=== PATIENT | female | born 2005 | race African-American/Black ===

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

== ENCOUNTER 2023-02-28 19:35 | Emergency (ER) | payer BC, MEDICAID, SELFPAY ==
[2023-02-28 19:58] VITALS: PULSE 76; RESP 18; TEMP 36.6; O2SAT 100; BMI 35.9
[2023-02-28 20:12] LABS: Basophils # 0.1 10^3/uL (0.0-0.1); Basophils % 0.7 %; Eosinophils # 0.5 10^3/uL (0.0-0.8); Eosinophils % 4.6 %; Hematocrit 39.3 % (37.0-47.0); Hemoglobin 12.5 g/dL (11.5-15.3); Lymphocytes # 3.4 10^3/uL (1.5-6.5); Mean Corpuscular HGB Conc 31.8 g/dL (30.0-36.0); Mean Corpuscular Hemoglobin 27.8 pg (28.0-34.0); Mean Corpuscular Volume 87.5 fl (81-99); Mean Platelet Volume 10.2 fL (7.4-10.4); Monocytes # 0.6 10^3/uL (0.2-0.9); Monocytes % 6.2 %; Neutrophils # 5.72 10^3/uL (1.8-8.0); Neutrophils % 55.3 %; Nucleated Red Blood Cells % 0 %; Platelet Count 280 10^3/cmm (130-400); Red Blood Count 4.49 10^6/uL (4.1-5.3); Red Cell Distribution Width 13.2 % (12.1-15.1); White Blood Count 10.3 10^3/uL (4.5-13.0)
[2023-02-28 20:31] LABS: Alanine Aminotransferase 16 U/L (0-33); Albumin Level 4.5 g/dL (3.5-5.2); Alkaline Phosphatase 106 U/L (35-105); Anion Gap 15.7 (5-19); Aspartate Amino Transferase 11 U/L (0-32); Blood Urea Nitrogen 12 mg/dL (6-20); Calcium 8.9 mg/dL (8.5-10.5); Carbon Dioxide 23 mmol/L (22-29); Chloride 104 mmol/L (98-107); Globulin 2.5 g/dL (1.3-4.6); Glomerular Filtration Rate 155.8 mL/min (90-130); Glucose 107 mg/dL (65-115); Lipase 32 U/L (13-60); Osmolality Calculated 288 mOsm/kg (285-295); Potassium 3.7 mmol/L (3.5-5.1); Sodium 139 mmol/L (136-145); Total Bilirubin 0.2 mg/dL (0.15-1.2)
[2023-02-28 21:05] LABS: HCG, Serum Qual Negative (Negative)
== END 2023-02-28 21:00 | disposition left against medical advice (07) ==
PROVIDERS: Emergency Medicine; Emergency Provider Family Medicine; PCP Nurse Practitioner Family
DX: Z53.21 Procedure and treatment not carried out due to patient leaving prior to being seen by health care provider (principal)
CPT/HCPCS: 36415; 80053; 83690; 84703; 85025

== ENCOUNTER 2023-03-07 13:38 | Emergency (ER) | payer BC, MEDICAID, SELFPAY ==
[2023-03-07 13:44] VITALS: BP 120/71; PULSE 77; RESP 16; TEMP 36.6; O2SAT 98
--- NOTE | 2023-03-07 13:57 | CTR_ITS ---
PROCEDURE INFORMATION: Exam: CT Abdomen And Pelvis With Contrast Exam date and time: 03/07/2023 2:56 PM Age: 17 years old Clinical indication: Abdominal pain; Generalized; Additional info: Abd pain TECHNIQUE: Imaging protocol: Computed tomography of the abdomen and pelvis with contrast. Radiation optimization: All CT scans at this facility use at least one of these dose optimization techniques: automated exposure control; mA and/or kV adjustment per patient size (includes targeted exams where dose is matched to clinical indication); or iterative reconstruction. Contrast material: OMNI 350; Contrast volume: 100 ml; Contrast route: INTRAVENOUS (IV); REPORTING DATA: Count of CT and Cardiac NM exams in prior 12 months: This patient has received 0 known CTs and 0 known cardiac nuclear medicine studies in the 12 months prior to the current study. COMPARISON: CR XR KUB portable [id number] 12/07/2021 5:33 PM RADIATION DOSE METRICS: Total DLP (mGy-cm): 813.45 FINDINGS: Lungs: No infiltrate or effusion is seen within the visualized lung bases. Liver: Normal. No mass. Gallbladder and bile ducts: Suggestion of Phrygian cap superior gallbladder and gallbladder is otherwise unremarkable. No biliary ductal dilatation. Pancreas: Normal. No ductal dilation. Spleen: Normal. No splenomegaly. Adrenal glands: Normal. No mass. Kidneys and ureters: Normal. No hydronephrosis. Stomach and bowel: Zhudliau-cu-fvjpr stool content in the colon and correlate clinically for constipation. Bowel is otherwise unremarkable. No abnormal wall thickening or mucosal thickening. Appendix: No evidence of appendicitis. Intraperitoneal space: Unremarkable. No free air. No significant fluid collection. Vasculature: Unremarkable. No abdominal aortic aneurysm. Lymph nodes: Unremarkable. No enlarged lymph nodes. Urinary bladder: Partially distended urinary bladder without focal abnormality. Reproductive: Suggestion of multiple very small follicles/follicular cystic appearance of the ovaries bilaterally. This is best suggested on the coronal images. Bones/joints: Unremarkable. No acute findings. Soft tissues: Tiny umbilical hernia fat. CT/CT abdomen pelvis w con* [id number] IMPRESSION: 1. Constipation not excluded and correlate clinically. 2. Tiny umbilical hernia fat. 3. Multiple very small follicles/follicular cyst appearance of the ovaries bilaterally. 4. No acute findings.
--- NOTE | 2023-03-07 14:15 | ED_ITS ---
HPI - Abdominal Pain General: Chief Complaint: Abdominal Pain Stated Complaint: abd pain low back pian Time Seen by Provider: 03/07/23 13:49 Source: patient Mode of arrival: ambulatory Limitations: no limitations History of Present Illness: 17-year-old female states she has been having some left-sided abdominal pain over the last 2 weeks. She states that it has been worsening over the last 2 days its been in the left flank radiates into her abdomen she rates her pain an 8 out of 10 currently it is worse with movement improved with rest she denies any vomiting or diarrhea denies any dysuria denies any vaginal bleeding. Associated Symptoms: Denies chills, diarrhea, dysuria, fever(s), nausea and vomiting Review of Systems Const: Denies: fever(s), chills, body aches or change in appetite ENMT: Denies: throat pain or dental pain Card: Denies: chest pain Resp: Denies: dyspnea GI: Reports: abdominal pain; Denies: nausea, vomiting or diarrhea : Reports: flank pain; Denies: dysuria Musc: Denies: neck pain or back pain Skin/Breast: Denies: rash Neuro: Denies: headache(s) PFSH ED PFSH: Medical History ADHD MDD (major depressive disorder) No pertinent past medical history neghx: htn,dm,thyroid,dvt/pe PCP: [facility] Surgical History No pertinent past surgical history Family History Grandmother Heart disease Maternal Hypertension Maternal Mother Stroke Denies family history of Colon cancer Ovarian cancer Diabetes Hypercholesteremia Breast cancer Uterine cancer Thyroid disease Physical Exam Const: COMMON NORMALS: no acute distress, patient oriented x3 and healthy appearing HENMT: COMMON NORMALS: normocephalic and atraumatic HEAD & SCALP: normocephalic and atraumatic Neck/C-Spine: COMMON NORMALS: full ROM and supple Chest: COMMONS NORMALS: normal inspection of the chest and normal palpation of entire chest wall Resp: COMMON NORMALS: normal respiratory effort, No retractions, No use of accessory muscles and clear to auscultation bilaterally AUSCULTATION: clear to auscultation bilaterally Cardio: COMMON NORMALS: regular rate, regular rhythm and No murmurs present (Cardio) RATE: regular rate RHYTHM: regular rhythm GI: COMMON NORMALS: Normal to inspection, nondistended, normoactive bowel sounds present, Soft to palpation, non-tender and no masses PALPATION: Yes Soft to palpation Extremity: COMMON NORMALS: normal to inspection and full ROM Neuro: COMMON NORMALS: patient oriented x3, moves all extremities and no focal motor deficits Psych: COMMON NORMALS: mental status grossly normal, Normal thought process present and cooperative THOUGHT PROCESS: Normal thought process present Skin: COMMON NORMALS: no rashes or lesions noted and no wounds GENERAL SKIN EXAM: no rashes or lesions noted Course Vital Signs: Vital signs: Vital Signs Temperature 98 F 03/07/23 13:44 Pulse Rate 60 03/07/23 16:08 Respiratory Rate 16 03/07/23 13:44 Blood Pressure 124/78 03/07/23 16:08 Pulse Oximetry 98 03/07/23 16:08 Oxygen Delivery Me thod Room Air 03/07/23 15:09 MDM - Abdominal Pain Medical Decision Making Patient presents with abdominal pain CT showed no acute findings patient's blood work here is normal no signs UTI she is well-appearing here we will place her on Naprosyn she is to follow-up with PCP she is stable for discharge return if worsening. Medical Records I reviewed the patient's medical records. Lab Data I reviewed the patient's lab results. 03/07/23 14:10 03/07/23 14:10 Labs/Radiology: Radiology Impressions Abdomen/Pelvis CT 03/07/23 13:57 IMPRESSION: 1. Constipation not excluded and correlate clinically. 2. Tiny umbilical hernia fat. 3. Multiple very small follicles/follicular cyst appearance of the ovaries bilaterally. 4. No acute findings. Laboratory Results WBC 9.4 10^3/uL (4.5-13.0) 03/07/23 14:10 RBC 4.68 10^6/uL (4.1-5.3) 03/07/23 14:10 Hgb 12.7 g/dL (11.5-15.3) 03/07/23 14:10 Hct 40.5 % (37.0-47.0) 03/07/23 14:10 MCV 86.5 fl (81-99) 03/07/23 14:10 MCH 27.1 pg (28.0-34.0) L 03/07/23 14:10 MCHC 31.4 g/dL (30.0-36.0) 03/07/23 14:10 RDW 13.2 % (12.1-15.1) 03/07/23 14:10 Plt Count 254 10^3/cmm (130-400) 03/07/23 14:10 MPV 10.4 fL (7.4-10.4) 03/07/23 14:10 Neut % (Auto) 63.8 % 03/07/23 14:10 Lymph % (Auto) 24.0 % 03/07/23 14:10 [place] % (Auto) 7.3 % 03/07/23 14:10 Eos % (Auto) 4.2 % 03/07/23 14:10 Baso % (Auto) 0.5 % 03/07/23 14:10 Neut # (Auto) 5.97 10^3/uL (1.8-8.0) 03/07/23 14:10 Lymph # (Auto) 2.2 10^3/uL (1.5-6.5) 03/07/23 14:10 [place] # (Auto) 0.7 10^3/uL (0.2-0.9) 03/07/23 14:10 Eos # (Auto) 0.4 10^3/uL (0.0-0.8) 03/07/23 14:10 Baso # (Auto) 0.1 10^3/uL (0.0-0.1) 03/07/23 14:10 Nucleated RBC % (auto) 0 % 03/07/23 14:10 Nucleated RBCs # 0.0 /100WBC 03/07/23 14:10 Sodium 140 mmol/L (136-145) 03/07/23 14:10 Potassium 4.2 mmol/L (3.5-5.1) 03/07/23 14:10 Chloride 109 mmol/L (98-107) H 03/07/23 14:10 Carbon Dioxide 21 mmol/L (22-29) L 03/07/23 14:10 Anion Gap 14.2 (5-19) 03/07/23 14:10 BUN 14 mg/dL (6-20) 03/07/23 14:10 Creatinine 0.6 mg/dL (0.5-0.9) 03/07/23 14:10 GFR Calculation 155.8 mL/min (90-130) H 03/07/23 14:10 Glucose 85 mg/dL (65-115) 03/07/23 14:10 Calculated Osmolality 290 mOsm/kg (285-295) 03/07/23 14:10 Calcium 8.6 mg/dL (8.5-10.5) 03/07/23 14:10 Total Bilirubin 0.2 mg/dL (0.15-1.2) 03/07/23 14:10 AST 14 U/L (0-32) 03/07/23 14:10 ALT 15 U/L (0-33) 03/07/23 14:10 Alkaline Phosphatase 106 U/L (35-105) H 03/07/23 14:10 Total Protein 6.8 g/dL (6.6-8.7) 03/07/23 14:10 Albumin 4.2 g/dL (3.5-5.2) 03/07/23 14:10 Globulin 2.6 g/dL (1.3-4.6) 03/07/23 14:10 Lipase 29 U/L (13-60) 03/07/23 14:10 HCG, Qual Negative (Negative) 03/07/23 14:10 Urine Color Yellow (Yellow) 03/07/23 14:20 Urine Appearance Clear (CLEAR) 03/07/23 14:20 Urine pH 8 (5-7) H 03/07/23 14:20 Ur Specific [place] 1.015 (1.005-1.030) 03/07/23 14:20 Urine Protein Neg (Negative) 03/07/23 14:20 Urine Glucose (UA) Norm (Normal) 03/07/23 14:20 Urine Ketones Negative (Negative) 03/07/23 14:20 Urine Blood Neg (Negative) 03/07/23 14:20 Urine Nitrate Negative (Negative) 03/07/23 14:20 Urine Bilirubin Neg (Negative) 03/07/23 14:20 Prot Sulfosalicylic Acd Negative (Negative) 03/07/23 14:20 Urine Urobilinogen Neg mg/dL (Negative) 03/07/23 14:20 Ur Leukocyte Esterase Negative (Negative) 03/07/23 14:20 Discharge Plan Discharge Patient Disposition: Home Clinical Impression: Abdominal pain Condition: Stable Prescriptions: New Naprosyn 500 mg tablet 500 mg PO BID PRN (Reason: pain) Qty: 20 0RF ondansetron 4 mg tablet,disintegrating 4 mg PO Q6H PRN (Reason: nausea and vomiting) Qty: 14 0RF No Action loratadine [Allergy Relief (loratadine)] 10 mg tablet 10 mg PO DAILY Nexplanon 68 mg implant See Rx Instructions .ROUTE .COMPLEX Rx Instructions: subdermally as directed aripiprazole 10 mg tablet 10 mg PO DAILY 30 Days Qty: 30 3RF multivitamin Tablet 2 tab PO DAILY omeprazole 20 mg capsule,delayed release(DR/EC) 20 mg PO DAILY PRN (Reason: Heartburn) albuterol sulfate 90 mcg/actuation HFA aerosol inhaler 2 puff INHALATION Q6H PRN (Reason: Wheezing) Vitamin D3 With Zinc 1 tab PO TID dextroamphetamine-amphetamine 20 mg capsule,extended release 24hr 20 mg PO QAM PRN (Reason: when she remembers to take) Discharge Orders: Discharge ED (Routine); Ordered 03/07/23 Ordered By: Zeus Mcnair Referrals: Kristi Tucker NP [Primary Care Provider] - 1-3 days Discharge Diet: Advance as tolerated Discharge Activity: Resume usual activity Patient Instructions: Abdominal Pain (ED) Coding Level of Care Code ED Clinical Rn for Ilene Wei
[2023-03-07 14:28] LABS: Basophils # 0.1 10^3/uL (0.0-0.1); Basophils % 0.5 %; Eosinophils # 0.4 10^3/uL (0.0-0.8); Eosinophils % 4.2 %; Hematocrit 40.5 % (37.0-47.0); Hemoglobin 12.7 g/dL (11.5-15.3); Lymphocytes # 2.2 10^3/uL (1.5-6.5); Mean Corpuscular HGB Conc 31.4 g/dL (30.0-36.0); Mean Corpuscular Hemoglobin 27.1 pg (28.0-34.0); Mean Corpuscular Volume 86.5 fl (81-99); Mean Platelet Volume 10.4 fL (7.4-10.4); Monocytes # 0.7 10^3/uL (0.2-0.9); Monocytes % 7.3 %; Neutrophils # 5.97 10^3/uL (1.8-8.0); Neutrophils % 63.8 %; Nucleated Red Blood Cells % 0 %; Platelet Count 254 10^3/cmm (130-400); Red Blood Count 4.68 10^6/uL (4.1-5.3); Red Cell Distribution Width 13.2 % (12.1-15.1); White Blood Count 9.4 10^3/uL (4.5-13.0)
[2023-03-07] MEDS: sodium chloride 0.9% 1,000 ML 999 ML IV (14:29)
[2023-03-07] MEDS: ondansetron 2 mg/ML SDV 2 mL 4 MG IVP (14:32)
[2023-03-07] MEDS: ketorolac 30 mg/mL INJ 15 MG IVP (14:32)
[2023-03-07 14:34] VITALS: BP 120/69; PULSE 71; O2SAT 97
[2023-03-07 14:46] LABS: HCG, Serum Qual Negative (Negative)
[2023-03-07 14:49] LABS: Add Urine Microscopic? NO; Charge for UA Resulting for Rev
[2023-03-07 14:52] LABS: Alanine Aminotransferase 15 U/L (0-33); Albumin Level 4.2 g/dL (3.5-5.2); Alkaline Phosphatase 106 U/L (35-105); Anion Gap 14.2 (5-19); Aspartate Amino Transferase 14 U/L (0-32); Blood Urea Nitrogen 14 mg/dL (6-20); Calcium 8.6 mg/dL (8.5-10.5); Carbon Dioxide 21 mmol/L (22-29); Chloride 109 mmol/L (98-107); Globulin 2.6 g/dL (1.3-4.6); Glomerular Filtration Rate 155.8 mL/min (90-130); Glucose 85 mg/dL (65-115); Lipase 29 U/L (13-60); Osmolality Calculated 290 mOsm/kg (285-295); Potassium 4.2 mmol/L (3.5-5.1); Sodium 140 mmol/L (136-145); Total Bilirubin 0.2 mg/dL (0.15-1.2); Total Protein 6.8 g/dL (6.6-8.7)
[2023-03-07] MEDS: iohexol 350 mg/mL 500 mL Btl (per mL) IV (15:00)
[2023-03-07 15:01] LABS: Bilirubin Urine Neg (Negative); Blood Urine Neg (Negative); Glucose Urine UA Norm (Normal); Ketones Urine Negative (Negative); Leukocyte Esterase Urine Negative (Negative); Nitrate Urine Negative (Negative); Protein Urine Neg (Negative); Specific Gravity, Urine 1.015 (1.005-1.030); Sulfosalicylic Acid Urine Negative (Negative); Urine Appearance Clear (CLEAR); Urine Color Yellow (Yellow); Urobilinogen Urine Neg (Negative); pH Urine 8 (5-7)
[2023-03-07 15:09] VITALS: BP 96/76; PULSE 60; O2SAT 100
[2023-03-07 16:08] VITALS: BP 124/78; PULSE 60; O2SAT 98
== END 2023-03-07 16:09 | disposition home or self-care (01) ==
PROVIDERS: Emergency Provider Emergency Medicine; PCP Nurse Practitioner Family
DX: R10.9 Unspecified abdominal pain (principal)
CPT/HCPCS: 74177; 80053; 81003; 83690; 84703; 85025; 96374; 96375; 99285; J1885; J2405; J7030; Q9967

== ENCOUNTER 2023-03-25 13:43 | Outpatient (CLI) | payer BC, MEDICAID, SELFPAY ==
--- NOTE | 2023-03-25 13:54 | US_ITS ---
NOTE: Report was unsigned for reason: Order was edited. Original Signature date and time was: 03/25/23 @5508 WS: [id number] US pelvic complete* [id number] HISTORY: L OVARIAN CYST COMPARISON: None available. Uterus: 6.7 cm x 3.8 cm x 3.1 cm. Normal size retroverted uterus. No fibroid or mass identified. Endometrium: 0.7 cm. Normal. Right ovary: 5.4 cm x 2.9 cm x 2.9 cm. Ovarian volume 23.4 cc. Ovary is enlarged with multiple follicles. Distribution of follicles and the number of follicles suggest polycystic ovarian syndrome. Left ovary: 4.7 cm x 3.4 cm x 2.3 cm. Ovarian volume 18.7 cc. Ovary is enlarged. Number of follicles and distribution suggests polycystic ovarian syndrome. Small amount of physiologic free fluid. [facility] US/US transvaginal [id number] IMPRESSION: 1. Normal endometrium. 2. Enlarged ovaries with numerous follicles. These findings can be seen with p olycystic ovarian syndrome.
== END 2023-03-25 13:44 | disposition home or self-care (01) ==
PROVIDERS: PCP Nurse Practitioner Family; Visit Provider Family Medicine
DX: N83.202 Unspecified ovarian cyst, left side (principal); N83.8 Other noninflammatory disorders of ovary, fallopian tube and broad ligament
CPT/HCPCS: 76830; 76856

== ENCOUNTER 2023-04-30 07:42 | Emergency (ER) | payer OTHER, BC, MEDICAID, SELFPAY ==
[2023-04-30 07:48] VITALS: BP 147/98; PULSE 92; RESP 16; O2SAT 100
--- NOTE | 2023-04-30 08:05 | XR_ITS ---
WS: [id number] EXAMINATION: XR cervical spine 3V* [id number] REASON FOR EXAM: neck pain after injury COMPARISON: None available. FINDINGS: There is no sign of acute fracture or subluxation. Vertebral body heights and intervertebral disc sp aces are maintained. The cervical bony alignment and osseous densities appear normal. There is no p revertebral soft tissue change. Flexion and extension views demonstrate no evidence of subluxation or spondylolisthesis XR/XR cervical spine 3V* [id number] IMPRESSION: No acute osseous abnormality.
--- NOTE | 2023-04-30 08:06 | ED_ITS ---
HPI - Head Injury General: Chief complaint: Head Injury Stated complaint: head injury Time Seen by Provider: 04/30/23 07:44 History of Present Illness: Patient is a 17-year-old female comes to the ED with head and neck injury. Patient states that her injury occurred 3 days ago while at work. She was bent over grabbing something and went to stand up and she hit the top of her head on a steel bar. Denies any loss of consciousness. Since head injury she has been having headache is generalized all throughout her head and she rates it an 8 out of 10. She also endorses having foggy brain and nausea. Symptoms worsen with bright overhead lights. Denies any vision changes, numbness tingling or weakness to 1 side of her body or face. She is also having neck pain is located right along her cervical spine. She states that any movement of neck worsens pain. Associated symptoms: Reports nausea and neck pain; Deny vomiting Review of Systems Narrative: brain fog Const: Denies: fever(s), chills or fatigue Eyes: Denies: change in vision or eye discomfort ENMT: Denies: throat pain, odynophagia, nasal discharge or nasal congestion Card: Denies: chest pain, palpitations, edema, swelling of feet/ankles, dyspnea on exertion or orthopnea Resp: Denies: dyspnea, productive cough or non-productive cough GI: Reports: nausea; Denies: abdominal pain, vomiting, diarrhea, constipation or hematochezia : Denies: flank pain, dysuria or hematuria Musc: Reports: neck pain; Denies: back pain or extremity swelling Skin/Breast: Denies: rash or new lesions Neuro: Reports: headache(s); Denies: numbness in extremities or weakness in extremities PFSH ED PFSH: Medical History ADHD MDD (major depressive disorder) No pertinent past medical history neghx: htn,dm,thyroid,dvt/pe PCP: [facility] Surgical History No pertinent past surgical history Family History Grandmother Heart disease Maternal Hypertension Maternal Mother Stroke Denies family history of Colon cancer Ovarian cancer Diabetes Hypercholesteremia Breast cancer Uterine cancer Thyroid disease Physical Exam Const: COMMON NORMALS: no acute distress, patient oriented x3, healthy appearing and alert HENMT: COMMON NORMALS: normocephalic HEAD & SCALP: normocephalic MOUTH: Normal oral and palatal mucosa present THROAT: posterior oropharynx normal and uvula midline Eye: COMMON NORMALS: Equal, round and reactive pupils present and EOMs intact bilaterally GENERAL EYE: appearance normal, both eyes and all related structures PUPIL: Yes Equal, round and reactive pupils present Neck/C-Spine: COMMON NORMALS: supple GENERAL: Yes normal visual inspection CERVICAL SPINE: Yes pain with cervical ROM and Yes Cervical spine tenderness C5 and C6 Lymph: LYMPHATIC: no lymphadenopathy noted Resp: COMMON NORMALS: normal respiratory effort, No retractions, No use of accessory muscles and clear to auscultation bilaterally AUSCULTATION: clear to auscultation bilaterally Cardio: COMMON NORMALS: regular rate, regular rhythm, S1 normal heart sound present, S2 normal heart sound present, No gallops present (Cardio), No clicks present (Cardio), No murmurs present (Cardio) and Peripheral pulses 2+ throughout RATE: regular rate RHYTHM: regular rhythm HEART SOUNDS: S1 normal heart sound present and S2 normal heart sound present PERIPHERAL PULSES: Peripheral pulses 2+ throughout GI: COMMON NORMALS: Normal to inspection, nondistended, normoactive bowel sounds present, Soft to palpation, non-tender and no masses PALPATION: Yes Soft to palpation : COMMON NORMALS: Yes no CVA tenderness BLADDER/KIDNEY EXAM: Yes no CVA tenderness Back/Pelvis: COMMON NORMALS: no CVA tenderness Extremity: GENERAL: Yes normal exam except as noted Neuro: COMMON NORMALS: patient oriented x3, CN's II-XII intact bilaterally, moves all extremities, no focal motor deficits and no sensory deficits noted SENSORIUM/ORIENTATION: Yes alert SENSORY EXAM: Yes extremities (intact) MOTOR EXAM: 5/5 motor strength present throughout Skin: COMMON NORMALS: no rashes or lesions noted GENERAL SKIN EXAM: no rashes or lesions noted and dry skin Course Vital Signs: Vital signs: Vital Signs Pulse Rate 83 04/30/23 09:16 Respiratory Rate 16 04/30/23 07:48 Blood Pressure 116/75 04/30/23 09:16 Pulse Oximetry 97 04/30/23 09:16 Oxygen Delivery Me thod Room Air 04/30/23 07:48 MDM - Head Injury Medcial Decision Making Patient is a 17-year-old female comes to the ED with head and neck injury. Patient states that her injury occurred 3 days ago while at work. She was bent over grabbing something and went to stand up and she hit the top of her head on a steel bar. Denies any loss of consciousness. Since head injury she has been having headache is generalized all throughout her head and she rates it an 8 out of 10. She also endorses having foggy brain and nausea. Symptoms worsen with bright overhead lights. Denies any vision changes, numbness tingling or weakness to 1 side of her body or face. She is also having neck pain is located right along her cervical spine. She states that any movement of neck worsens pain. Vitals are stable. Neuro exam shows no deficits. She has some cervical spinal tenderness and paracervical muscle tenderness as well rest of exam is benign patient peers nontoxic in no acute distress or pain. Cervical spine x- ray showed no acute findings. Patient was diagnosed with a cervical strain and minor head injury without loss of consciousness. Patient was dose of Toradol and a muscle relaxer here in the ED. Patient was stable for discharge home and told to follow-up with PCP within the next week for reevaluation. Return to ED precautions given. Patient understood and agreed with plan Lab Data Radiology Impressions Cervical Spine X-Ray 04/30/23 08:05 IMPRESSION: No acute osseous abnormality. Discharge Plan Discharge Patient Disposition: Home Clinical Impression: Minor head injury without loss of consciousness Qualifiers: Encounter type: initial encounter Qualified Code(s): S09.90XA - Unspecified injury of head, initial encounter Cervical strain, acute Qualifiers: Encounter type: initial encounter Qualified Code(s): S16.1XXA - Strain of muscle, fascia and tendon at neck level, initial encounter Condition: Stable Prescriptions: No Action Nexplanon 68 mg implant See Rx Instructions .ROUTE .COMPLEX Rx Instructions: subdermally as directed multivitamin Tablet 2 tab PO DAILY PRN (Reason: unknown) omeprazole 20 mg capsule,delayed release(DR/EC) 20 mg PO DAILY PRN (Reason: Heartburn) albuterol sulfate 90 mcg/actuation HFA aerosol inhaler 2 puff INHALATION Q6H PRN (Reason: Wheezing) Vitamin D3 With Zinc 1 tab PO TID PRN (Reason: unknown) Tylenol Ex Str Rapid Release 500 mg Tablet 1,000 mg PO Q6H PRN (Reason: Pain) mupirocin 2 % ointment 1 applic TOPICAL BID Discharge Orders: Discharge ED (Routine); Ordered 04/30/23 Ordered By: Bennett Melgar Referrals: Kristi Tucker NP [Primary Care Provider] - Discharge Diet: Regular Discharge Activity: Resume usual activity Patient Instructions: Concussion/Head Injury - Adult Activity Restrictions/Additional Instructions: Follow-up with medical provider as directed in the next 5 to 7 days for reevaluation. Take [id number] Tylenol or ibuprofen to help with headaches. Avoid activities or environments that can cause worsening symptoms such as reading, watching TV or looking at cell phone and slowly advance those activities as your symptoms resolved. Return to the ER or your medical provider if condition worsens. Please read and understand discharge instructions. Thank you for choosing [facility] for your healthcare needs today. Please realize this is an emergency room and that we are providing you with a medical screening exam and this may not be complete and all inclusive of all the testing and or work up that you may need to determine your ailment or severity of your illness. It is very important that you follow up as instructed or that you return to the Emergency Department should you have concerns or if your condition changes or worsens in any way. Stand Alone Forms: Work/School Release Coding Level of Care Code ED Exchange Underwriting Consultant for Ilene Wei
[2023-04-30] MEDS: orphenadrine 30 mg/mL Inj 2 mL 60 MG IM (08:08)
[2023-04-30] MEDS: ketorolac 60 mg/2 mL INJ IM (08:08)
--- NOTE | 2023-04-30 09:11 | PC.PHAR ---
pt states she takes care of her own medications-pt states she is not taking abilify 10mg daily filled 03/25/23 30d/s,lexapro 5mg daily filled 03/25/23 30d/s-adderall xr 20mg qam (pt states not taken for 2 months)-pt states she finished her keflex 500mg tid filled 04/21/23 7d/s-
[2023-04-30 09:16] VITALS: BP 116/75; PULSE 83; O2SAT 97
== END 2023-04-30 09:17 | disposition home or self-care (01) ==
PROVIDERS: Emergency Provider Physician Assistant; PCP Nurse Practitioner Family
DX: S16.1XXA Strain of muscle, fascia and tendon at neck level, initial encounter (principal); Z79.899 Other long term (current) drug therapy; W22.8XXA Striking against or struck by other objects, initial encounter
CPT/HCPCS: 72040; 96372; 99284; J1885; J2360

== ENCOUNTER 2023-08-21 06:52 | Emergency (ER) | payer MEDICAID, SELFPAY ==
[2023-08-21 06:57] VITALS: BP 138/87; PULSE 96; RESP 90; TEMP 37.1; O2SAT 99; BMI 41.1
--- NOTE | 2023-08-21 07:00 | W.ED.FEMALGU ---
HPI - Female Genitourinary General: Chief complaint: Urogenital-Female Stated complaint: urinary problems/pain Time Seen by Provider: 08/21/23 06:53 Source: patient Mode of arrival: ambulatory History of Present Illness: 18-year-old female presents emergency room to the emergency room complaining of dysuria. She has had this for the last couple of days frequency and urgency as well. No history of nephrolithiasis. No vaginal discharge. She does not believe that she is . No fever sweats or chills. MD elicited complaint: dysuria and UTI Onset (ago): day(s) (2) Female Urogenital Radiation: R Flank Quality of pain: sharp Vaginal discharge: none Vaginal bleeding: none Urinary symptoms: Dysuria and Frequency Exacerbating factors: urination Relieving factors: none Associated symptoms: Deny abdominal pain, short of breath, fevers/chills, headache(s), nausea, rash, seizures, syncope, vaginal bleeding, vaginal discharge or weakness Review of Systems Const: Denies: fever(s) or chills Card: Denies: chest pain or syncope Resp: Denies: dyspnea GI: Denies: abdominal pain or nausea : Reports: flank pain, dysuria and urinary frequency; Denies: urinary urgency or vaginal discharge Musc: Denies: neck pain or back pain Skin/Breast: Denies: rash Neuro: Denies: headache(s) PFS ED PFSH: Medical History ADHD MDD (major depressive disorder) No pertinent past medical history neghx: htn,dm,thyroid,dvt/pe PCP: [facility] Surgical History No pertinent past surgical history Family History Grandmother Heart disease Maternal Hypertension Maternal Mother Stroke Denies family history of Colon cancer Ovarian cancer Diabetes Hypercholesteremia Breast cancer Uterine cancer Thyroid disease Physical Exam Const: COMMON NORMALS: no acute distress GENERAL APPEARANCE: cooperative and comfortable ORIENTATION/CONSCIOUSNESS: Yes awake, Yes oriented to person, Yes oriented to place and Yes oriented to time HENMT: COMMON NORMALS: normocephalic, atraumatic and hearing grossly normal bilaterally HEAD & SCALP: normocephalic and atraumatic Resp: COMMON NORMALS: normal respiratory effort, No retractions, No use of accessory muscles and clear to auscultation bilaterally AUSCULTATION: clear to auscultation bilaterally Cardio: COMMON NORMALS: regular rate, regular rhythm and No murmurs present (Cardio) RATE: regular rate RHYTHM: regular rhythm GI: COMMON NORMALS: Soft to palpation and No hepatosplenomegaly present AUSCULTATION: Yes normoactive bowel sounds PALPATION: Yes Soft to palpation, No Tenderness to palpation present (GI), No Guarding due to palpation present (GI) and Yes No hepatosplenomegaly present : SPECULUM EXAM - VAGINA: No vaginal bleeding OB/EXTERNAL & SPECULUM: No vaginal bleeding Extremity: COMMON NORMALS: normal to inspection, capillary refill normal, no clubbing, cyanosis or edema, no calf tenderness and no pedal edema Neuro: SENSORIUM/ORIENTATION: Yes oriented to person, Yes oriented to place and Yes oriented to time Skin: COMMON NORMALS: no rashes or lesions noted GENERAL SKIN EXAM: no rashes or lesions noted Course Vital Signs: Vital signs: Vital Signs Temperature 98.7 F 08/21/23 06:57 Pulse Rate 90 08/21/23 07:04 Respiratory Rate 18 08/21/23 07:04 Blood Pressure 138/87 08/21/23 07:04 Pulse Oximetry 99 08/21/23 07:04 Oxygen Delivery Me thod Room Air 08/21/23 07:04 MDM - Female Medical Decision Making Cystitis urine negative no significant leukocytosis no signs of pyelonephritis clinically. Discharged home on Macrobid twice daily for 7 days Pyridium and for 3 days for bladder spasm increase fluid intake follow-up as needed Medical Records I reviewed the patient's medical records. Lab Data I reviewed the patient's lab results. 08/21/23 07:11 08/21/23 07:11 Laboratory Results WBC 11.99 10^3/uL (4.5-13.0) 08/21/23 07:11 RBC 4.85 10^6/uL (3.85-5.65) 08/21/23 07:11 Hgb 13.10 g/dL (12.4-14.8) 08/21/23 07:11 Hct 41.3 % (36-47) 08/21/23 07:11 MCV 85.2 fl (85-98) 08/21/23 07:11 MCH 27.0 pg (27-33) 08/21/23 07:11 MCHC 31.7 g/dL (30-55) 08/21/23 07:11 RDW 13.2 % (12.1-15.1) 08/21/23 07:11 Plt Count 289 10^3/cmm (157-399) 08/21/23 07:11 MPV 10.2 fL (7.4-10.4) 08/21/23 07:11 Neut % (Auto) 74.3 % 08/21/23 07:11 Lymph % (Auto) 19.2 % 08/21/23 07:11 [place] % (Auto) 3.4 % 08/21/23 07:11 Eos % (Auto) 2.4 % 08/21/23 07:11 Baso % (Auto) 0.4 % 08/21/23 07:11 Neut # (Auto) 8.90 10^3/uL (1.8-8.0) H 08/21/23 07:11 Lymph # (Auto) 2.3 10^3/uL (1.5-6.5) 08/21/23 07:11 [place] # (Auto) 0.4 10^3/uL (0.2-0.9) 08/21/23 07:11 Eos # (Auto) 0.3 10^3/uL (0.0-0.8) 08/21/23 07:11 Baso # (Auto) 0.1 10^3/uL (0.0-0.1) 08/21/23 07:11 Nucleated RBC % (auto) 0 % 08/21/23 07:11 Nucleated RBCs # 0.0 /100WBC 08/21/23 07:11 Sodium 139 mmol/L (136-145) 08/21/23 07:11 Potassium 3.4 mmol/L (3.5-5.1) L 08/21/23 07:11 Chloride 104 mmol/L (98-107) 08/21/23 07:11 Carbon Dioxide 25 mmol/L (22-29) 08/21/23 07:11 Anion Gap 13.4 (5-19) 08/21/23 07:11 BUN 10 mg/dL (6-20) 08/21/23 07:11 Creatinine 0.6 mg/dL (0.5-0.9) 08/21/23 07:11 GFR Calculation 154.2 mL/min (90-130) H 08/21/23 07:11 Glucose 87 mg/dL (65-115) 08/21/23 07:11 Calculated Osmolality 286 mOsm/kg (285-295) 08/21/23 07:11 Calcium 9.5 mg/dL (8.5-10.5) 08/21/23 07:11 HCG, Qual Negative (Negative) 08/21/23 07:11 Urine Color Yellow (Yellow) 08/21/23 07:24 Urine Appearance Cloudy (CLEAR) A 08/21/23 07:24 Urine pH 5 (5-7) 08/21/23 07:24 Ur Specific [place] 1.020 (1.005-1.030) 08/21/23 07:24 Urine Protein 1+ (Negative) H 08/21/23 07:24 Urine Glucose (UA) Norm (Normal) 08/21/23 07:24 Urine Ketones 1+ (Negative) H 08/21/23 07:24 Urine Blood 2+ (Negative) H 08/21/23 07:24 Urine Nitrate Negative (Negative) 08/21/23 07:24 Urine Bilirubin Neg (Negative) 08/21/23 07:24 Urine Urobilinogen Neg mg/dL (Negative) 08/21/23 07:24 Ur Leukocyte Esterase Trace (Negative) H 08/21/23 07:24 Urine RBC 5-10 /hpf (0-2) H 08/21/23 07:24 Urine WBC 40-55 /hpf (0-5) H 08/21/23 07:24 Ur Squamous Epith Cells 0-4 /hpf (0-5) H 08/21/23 07:24 Amorphous Sediment Not Reportable 08/21/23 07:24 Urine Bacteria 2+ /hpf (NONE) H 08/21/23 07:24 Urine Mucus 1+ /hpf 08/21/23 07:24 No radiology studies performed this visit Discharge Plan Discharge Patient Disposition: Home Clinical Impression: Cystitis Condition: Stable Prescriptions: New Macrobid 100 mg capsule 100 mg PO BID 7 Days Qty: 14 0RF Rx Instructions: must administer with a meal/food Pyridium 200 mg tablet 200 mg PO Q8H Qty: 6 0RF No Action Nexplanon 68 mg implant See Rx Instructions .ROUTE .COMPLEX Rx Instructions: subdermally as directed aripiprazole 10 mg tablet 10 mg PO DAILY 30 Days Qty: 30 3RF dextroamphetamine-amphetamine 20 mg capsule,extended release 24hr 20 mg PO QAM 30 Days Qty: 30 0RF escitalopram oxalate 5 mg tablet 5 mg PO DAILY 30 Days Qty: 30 3RF multivitamin Tablet 2 tab PO DAILY PRN (Reason: unknown) omeprazole 20 mg capsule,delayed release(DR/EC) 20 mg PO DAILY PRN (Reason: Heartburn) albuterol sulfate 90 mcg/actuation HFA aerosol inhaler 2 puff INHALATION Q6H PRN (Reason: Wheezing) Vitamin D3 With Zinc 1 tab PO TID PRN (Reason: unknown) Tylenol Ex Str Rapid Release 500 mg Tablet 1,000 mg PO Q6H PRN (Reason: Pain) mupirocin 2 % ointment 1 applic TOPICAL BID Discharge Orders: Discharge ED (Routine); Ordered 08/21/23 Ordered By: Marbin Gonzalez Referrals: Kristi Tucker NP [Primary Care Provider] - Discharge Diet: Usual diet Discharge Activity: Resume usual activity Patient Instructions: Opioid Safety, Pain Management Activity Restrictions/Additional Instructions: Thank you for choosing [facility] for your healthcare needs today. Please realize this is an emergency room and that we are providing you with a medical screening exam and this may not be complete and all inclusive of all the testing and or work up that you may need to determine your ailment or severity of your illness. It is very important that you follow up as instructed or that you return to the Emergency Department should you have concerns or if your condition changes or worsens in any way. You symptoms. Laboratory were seen today for bladder work showed you did have a bladder infection started on oral antibiotics 1 twice daily for 7 days she also given a bladder anesthetic which will cut down on cramping and bladder spasm take 1 pill 3 times daily for 2 days this will discolor your urine slightly. Follow-up with your primary care doctor if not improved. Coding Level of Care Code ED Family Services Specialist for Ilene Wei
[2023-08-21 07:04] VITALS: BP 138/87; PULSE 90; RESP 18; O2SAT 99
[2023-08-21 07:23] LABS: Basophils # 0.1 10^3/uL (0.0-0.1); Basophils % 0.4 %; Eosinophils # 0.3 10^3/uL (0.0-0.8); Eosinophils % 2.4 %; Hematocrit 41.3 % (36-47); Lymphocytes # 2.3 10^3/uL (1.5-6.5); Lymphocytes % 19.2 %; Mean Corpuscular HGB Conc 31.7 g/dL (30-55); Mean Corpuscular Volume 85.2 fl (85-98); Mean Platelet Volume 10.2 fL (7.4-10.4); Monocytes # 0.4 10^3/uL (0.2-0.9); Monocytes % 3.4 %; Neutrophils % 74.3 %; Nucleated Red Blood Cells % 0 %; Platelet Count 289 10^3/cmm (157-399); Red Blood Count 4.85 10^6/uL (3.85-5.65); Red Cell Distribution Width 13.2 % (12.1-15.1); White Blood Count 11.99 10^3/uL (4.5-13.0)
[2023-08-21 07:35] LABS: HCG, Serum Qual Negative (Negative)
[2023-08-21 07:41] LABS: Anion Gap 13.4 (5-19); Blood Urea Nitrogen 10 mg/dL (6-20); Calcium 9.5 mg/dL (8.5-10.5); Carbon Dioxide 25 mmol/L (22-29); Chloride 104 mmol/L (98-107); Glomerular Filtration Rate 154.2 mL/min (90-130); Glucose 87 mg/dL (65-115); Osmolality Calculated 286 mOsm/kg (285-295); Potassium 3.4 mmol/L (3.5-5.1); Sodium 139 mmol/L (136-145)
[2023-08-21 07:43] LABS: Add Urine Microscopic? YES; Bilirubin Urine Neg (Negative); Blood Urine 2+ (Negative); Glucose Urine UA Norm (Normal); Ketones Urine 1+ (Negative); Leukocyte Esterase Urine Trace (Negative); Nitrate Urine Negative (Negative); Protein Urine 1+ (Negative); Urine Appearance Cloudy (CLEAR); Urine Color Yellow (Yellow); Urobilinogen Urine Neg (Negative); pH Urine 5 (5-7)
[2023-08-21 07:44] LABS: Add Urine Culture? Yes; Bacteria Urine 2+ /hpf; Mucus Urine 1+ /hpf; Squamous Epithelial Cell Urine 0-4 /hpf (0-5); WBC Urine 40-55 /hpf (0-5)
== END 2023-08-21 08:05 | disposition home or self-care (01) ==
PROVIDERS: Emergency Provider Family Medicine; PCP Nurse Practitioner Family
DX: N30.90 Cystitis, unspecified without hematuria (principal)
CPT/HCPCS: 80048; 81001; 84703; 85025; 87077; 87086; 87186; 99283

== ENCOUNTER 2023-10-22 20:50 | Emergency (ER) | payer OTHER, MEDICAID, SELFPAY ==
[2023-10-22 20:52] VITALS: BP 140/81; PULSE 78; RESP 16; TEMP 36.4; O2SAT 99; BMI 41.1
[2023-10-22 21:10] LABS: Basophils % 0.3 %; Eosinophils # 0.2 10^3/uL (0.0-0.8); Eosinophils % 1.6 %; Hematocrit 38.4 % (36-47); Lymphocytes % 33.4 %; Mean Corpuscular HGB Conc 31.8 g/dL (30-55); Mean Corpuscular Hemoglobin 26.9 pg (27-33); Mean Corpuscular Volume 84.8 fl (85-98); Mean Platelet Volume 10.1 fL (7.4-10.4); Monocytes # 0.8 10^3/uL (0.2-0.9); Neutrophils # 6.79 10^3/uL (1.8-8.0); Neutrophils % 57.4 %; Nucleated Red Blood Cells % 0 %; Platelet Count 294 10^3/cmm (157-399); Red Blood Count 4.53 10^6/uL (3.85-5.65); Red Cell Distribution Width 13.4 % (12.1-15.1); White Blood Count 11.85 10^3/uL (4.5-13.0)
[2023-10-22 21:26] LABS: Alanine Aminotransferase 16 U/L (0-33); Alkaline Phosphatase 111 U/L (35-105); Anion Gap 14.6 (5-19); Aspartate Amino Transferase 14 U/L (0-32); Blood Urea Nitrogen 13 mg/dL (6-20); Calcium 9.8 mg/dL (8.5-10.5); Carbon Dioxide 22 mmol/L (22-29); Chloride 105 mmol/L (98-107); Globulin 3.2 g/dL (1.3-4.6); Glomerular Filtration Rate 190.3 mL/min (90-130); Glucose 91 mg/dL (65-115); Lipase 24 U/L (13-60); Osmolality Calculated 286 mOsm/kg (285-295); Potassium 3.6 mmol/L (3.5-5.1); Sodium 138 mmol/L (136-145); Total Bilirubin 0.2 mg/dL (0.15-1.2); Total Protein 7.2 g/dL (6.6-8.7)
--- NOTE | 2023-10-22 21:57 | ED_ITS ---
HPI - Abdominal Pain 2 General: Chief Complaint: Abdominal Pain Stated Complaint: left abd pain vomit Time Seen by Provider: 10/22/23 20:52 History of Present Illness: Patient presents to the ER with complaints of left flank pain that started a few days ago. Patient denies any radiation or anything makes it better or worse. Patient denies any nausea vomiting diarrhea fever chills coughs colds dysuria etc. Pain is reproducible with palpation. Patient does not have a history of kidney stones but did have a history of a bladder infection approximately 3 months ago. Review of Systems 2 General: Reports: 10 or more systems reviewed and unremarkable except in HPI and below PFSH ED 2 PFSH: Medical History ADHD MDD (major depressive disorder) Psychiatric care No pertinent past medical history neghx: htn,dm,thyroid,dvt/pe PCP: Kristi Tucker Surgical History No pertinent past surgical history Family History Grandmother Heart disease Maternal Hypertension Maternal Mother Stroke Denies family history of Colon cancer Ovarian cancer Diabetes Hypercholesteremia Breast cancer Uterine cancer Thyroid disease Physical Exam 2 Const: COMMON NORMALS: no acute distress, average body habitus, patient oriented x3, no limitations, healthy appearing and well nourished HENMT: COMMON NORMALS: normocephalic, atraumatic, hearing grossly normal bilaterally, external ears normal, EAC's normal, Normal external nose present, moist oral mucous membranes and oropharynx normal HEAD & SCALP: normocephalic and atraumatic NOSE: Normal external nose present EXTERNAL EAR: Yes external ears normal EXTERNAL AUDITORY CANAL: EAC's normal Neck/C-Spine: COMMON NORMALS: no JVD Chest: COMMONS NORMALS: normal inspection of the chest and normal palpation of entire chest wall Resp: COMMON NORMALS: normal respiratory effort, No retractions, No use of accessory muscles and clear to auscultation bilaterally AUSCULTATION: clear to auscultation bilaterally Cardio: COMMON NORMALS: no JVD, regular rate, regular rhythm, S1 normal heart sound present, S2 normal heart sound present, No gallops present (Cardio), No clicks present (Cardio), No murmurs present (Cardio) and No rub (Cardio) R ATE: regular rate RHYTHM: regular rhythm HEART SOUNDS: S1 normal heart sound present and S2 normal heart sound present GI: COMMON NORMALS: Normal to inspection, nondistended, normoactive bowel sounds present, Soft to palpation, non-tender, No hepatosplenomegaly present and no masses PALPATION: Yes Soft to palpation and Yes No hepatosplenomegaly present OTHER: Tender with palpation all over left flank area. This reproduces the pain Neuro: COMMON NORMALS: patient oriented x3 Course 2 Vital Signs: Vital signs: Vital Signs Temperature 97.5 F L 10/22/23 20:52 Pulse Rate 78 10/22/23 20:52 Respiratory Rate 16 10/22/23 20:52 Blood Pressure 140/81 10/22/23 20:52 Pulse Oximetry 99 10/22/23 20:52 Oxygen Delivery Me thod Room Air 10/22/23 20:52 MDM - Abdominal Pain Medical Decision Making Patient presents to the ER with left flank pain. Patient had lab work included a UA that showed minimal hematuria, patient had an abdomen pelvic CT renal stone protocol. This did not show any acute pathology. Patient will be discharged home with a diagnosis of left flank pain probably musculoskeletal. Patient should follow-up with her PCP on an as-needed basis. Differential Diagnosis Unlikely abdominal pain, acute appendicitis, calculus of kidney, constipation, diverticulitis, endometriosis, gastroenteritis, pancreatitis or small bowel obstruction Medical Records I reviewed the patient's medical records. Lab Data I reviewed the patient's lab results. 10/22/23 21:03 10/22/23 21:03 Labs/Radiology: Radiology Impressions Abdomen/Pelvis CT 10/22/23 22:05 IMPRESSION: 1. No acute pelvic abnormality to account for the reported symptomatology. Specifically, no renal or ureteric stone or hydronephrosis. Further urologic evaluation may be considered if there is recurrent or persistent unexplained hematuria. 2. Stable enlarged ovaries compared to 03/07/2023, compatible with polycystic ovarian syndrome appropriate clinical and biochemical setting. ADDENDUM: 10/22/23 1314 Typographic error in the 1st sentence of the 1st impression section which should read: 1. No acute ABDOMINOPELVIC abnormality to account for reported symptomatology. Laboratory Results WBC 11.85 10^3/uL (4.5-13.0) 10/22/23 21:03 RBC 4.53 10^6/uL (3.85-5.65) 10/22/23 21:03 Hgb 12.20 g/dL (12.4-14.8) L 10/22/23 21:03 Hct 38.4 % (36-47) 10/22/23 21:03 MCV 84.8 fl (85-98) L 10/22/23 21: MCH 26.9 pg (27-33) L 10/22/23 21: MCHC 31.8 g/dL (30-55) 10/22/23 21:03 RDW 13.4 % (12.1-15.1) 10/22/23 21:03 Plt Count 294 10^3/cmm (157-399) 10/22/23 21:03 MPV 10.1 fL (7.4-10.4) 10/22/23 21:03 Neut % (Auto) 57.4 % 10/22/23 21: Lymph % (Auto) 33.4 % 10/22/23 21:03 [place] % (Auto) 7.0 % 10/22/23 21:03 Eos % (Auto) 1.6 % 10/22/23 21:03 Baso % (Auto) 0.3 % 10/22/23: Neut # (Auto) 6.79 10^3/uL (1.8-8.0) 10/22/23 21: Lymph # (Auto) 4.0 10^3/uL (1.5-6.5) 10/22/23 21: [place] # (Auto) 0.8 10^3/uL (0.2-0.9) 10/22/23 21: Eos # (Auto) 0.2 10^3/uL (0.0-0.8) 10/22/23 21: Baso # (Auto) 0.0 10^3/uL (0.0-0.1) 10/22/23 21: Nucleated RBC % (auto) 0 % 10/22/23: Nucleated RBCs # 0.0 /100WBC 10/22/23 21: Sodium 138 mmol/L (136-145) 10/22/23 21: Potassium 3.6 mmol/L (3.5-5.1) 10/22/23 21:03 Chloride 105 mmol/L (98-107) 10/22/23 21:03 Carbon Dioxide 22 mmol/L (22-29) 10/22/23 21:03 Anion Gap 14.6 (5-19) 10/22/23 21:03 BUN 13 mg/dL (6-20) 10/22/23 21:03 Creatinine 0.5 mg/dL (0.5-0.9) 10/22/23 21:03 GFR Calculation 190.3 mL/min (90-130) H 10/22/23 21:03 Glucose 91 mg/dL (65-115) 10/22/23 21:03 Calculated Osmolality 286 mOsm/kg (285-295) 10/22/23 21:03 Calcium 9.8 mg/dL (8.5-10.5) 10/22/23 21:03 Total Bilirubin 0.2 mg/dL (0.15-1.2) 10/22/23 21:03 AST 14 U/L (0-32) 10/22/23 21:03 ALT 16 U/L (0-33) 10/22/23 21:03 Alkaline Phosphatase 111 U/L (35-105) H 10/22/23 21:03 Total Protein 7.2 g/dL (6.6-8.7) 10/22/23 21:03 Albumin 4.0 g/dL (3.5-5.2) 10/22/23 21:03 Globulin 3.2 g/dL (1.3-4.6) 10/22/23 21:03 Lipase 24 U/L (13-60) 10/22/23 21:03 HCG, Qual Negative (Negative) 10/22/23 21:50 Urine Color Yellow (Yellow) 10/22/23 21:50 Urine Appearance Sl hazy (CLEAR) A 10/22/23 21:50 Urine pH 5 (5-7) 10/22/23 21:50 Ur Specific [place] 1.020 (1.005-1.030) 10/22/23 21:50 Urine Protein Neg (Negative) 10/22/23 21:50 Urine Glucose (UA) Norm (Normal) 10/22/23 21:50 Urine Ketones Negative (Negative) 10/22/23 21:50 Urine Blood Neg (Negative) 10/22/23 21:50 Urine Nitrate Negative (Negative) 10/22/23 21:50 Urine Bilirubin Neg (Negative) 10/22/23 21:50 Urine Urobilinogen Norm mg/dL (Negative) 10/22/23 21:50 Ur Leukocyte Esterase Negative (Negative) 10/22/23 21:50 Urine RBC 0-4 /hpf (0-2) H 10/22/23 21:50 Urine WBC 0-4 /hpf (0-5) H 10/22/23 21:50 Ur Squamous Epith Cells 15-25 /hpf (0-5) H 10/22/23 21:50 Amorphous Sediment Not Reportable 10/22/23 21:50 Urine Bacteria 1+ /hpf (NONE) H 10/22/23 21:50 Urine Mucus 1+ /hpf 10/22/23 21:50 All radiology interpretation(s) finalized by discharge Discharge Plan Discharge Patient Disposition: Home Clinical Impression: Abdominal wall pain in left flank Condition: Stable Prescriptions: No Action Nexplanon 68 mg implant See Rx Instructions .ROUTE .COMPLEX Rx Instructions: subdermally as directed aripiprazole 10 mg tablet 10 mg PO DAILY 30 Days Qty: 30 3RF dextroamphetamine-amphetamine 20 mg capsule,extended release 24hr 20 mg PO QAM 30 Days Qty: 30 0RF escitalopram oxalate 5 mg tablet 5 mg PO DAILY 30 Days Qty: 30 3RF multivitamin Tablet 2 tab PO DAILY PRN (Reason: unknown) omeprazole 20 mg capsule,delayed release(DR/EC) 20 mg PO DAILY PRN (Reason: Heartburn) albuterol sulfate 90 mcg/actuation HFA aerosol inhaler 2 puff INHALATION Q6H PRN (Reason: Wheezing) Vitamin D3 With Zinc 1 tab PO TID PRN (Reason: unknown) Pyridium 200 mg tablet 200 mg PO Q8H Qty: 6 0RF Tylenol Ex Str Rapid Release 500 mg Tablet 1,000 mg PO Q6H PRN (Reason: Pain) mupirocin 2 % ointment 1 applic TOPICAL BID Discharge Orders: Discharge ED (Routine); Ordered 10/22/23 Ordered By: Arnel Tiwari Referrals: Kristi Tucker NP [Primary Care Provider] - 1 week Patient Instructions: Flank Pain (ED) Activity Restrictions/Additional Instructions: Your evaluation and lab work including blood, urine, CT scans did not show any acute cause for your left flank pain. Please follow-up with your family practice physician within the next 7 days for further evaluation and treatment. Coding Level of Care Code ED Brass Reclaimer for Ilene Wei
[2023-10-22 22:01] LABS: HCG Qualitative Urine. Negative (Negative)
[2023-10-22 22:02] LABS: Add Urine Culture? No; Add Urine Microscopic? YES; Bacteria Urine 1+ /hpf; Bilirubin Urine Neg (Negative); Blood Urine Neg (Negative); Glucose Urine UA Norm (Normal); Ketones Urine Negative (Negative); Leukocyte Esterase Urine Negative (Negative); Mucus Urine 1+ /hpf; Nitrate Urine Negative (Negative); Protein Urine Neg (Negative); RBC Urine 0-4 /hpf (0-2); Squamous Epithelial Cell Urine 15-25 /hpf (0-5); Urine Appearance SL Hazy (CLEAR); Urine Color Yellow (Yellow); Urobilinogen Urine Norm (Negative); WBC Urine 0-4 /hpf (0-5); pH Urine 5 (5-7)
--- NOTE | 2023-10-22 22:05 | CTR_ITS ---
PROCEDURE INFORMATION: Exam: CT Abdomen And Pelvis Without Contrast Exam date and time: 10/22/2023 10:10 PM Age: 18 years old Clinical indication: Abdominal pain; Flank; Left; Patient HX: Body aches, RODRÍGUEZ, episode of vomitting; Additional info: Left flank pain, hematuria TECHNIQUE: Imaging protocol: Computed tomography of the abdomen and pelvis without contrast. Radiation optimization: All CT scans at this facility use at least one of these dose optimization techniques: automated exposure control; mA and/or kV adjustment per patient size (includes targeted exams where dose is matched to clinical indication); or iterative reconstruction. COMPARISON: CT abdomen pelvis w con* [id number] 03/07/2023 2:56 PM RADIATION DOSE METRICS: Total DLP (mGy-cm): 1082.21 FINDINGS: Liver: Normal. No osseous lesion this noncontrast study. Gallbladder and bile ducts: Normal. No calcified stones. No ductal dilation. Pancreas: Normal. No ductal dilation. Spleen: Normal. No splenomegaly. Adrenal glands: Normal. No obvious nodule. Kidneys and ureters: Normal. No hydronephrosis. Renal stone no contour mass on noncontrast. Stomach and bowel: Unremarkable. No obstruction. No mucosal thickening. Appendix: The appendix is unremarkable. Intraperitoneal space: Unremarkable. No free air. No significant fluid collection. Vasculature: Unremarkable. No abdominal aortic aneurysm. Lymph nodes: Unremarkable. No enlarged lymph nodes. Urinary bladder: The bladder is empty and not further assessed Reproductive: Prominent appearance of the bilateral ovaries similar to 03/07/2023 , possibly indicative underlying polycystic ovaries in the appropriate clinical setting. Bones/joints: Unremarkable. No acute fracture. Soft tissues: Unremarkable. CT/CT kidney stone [id number] IMPRESSION: 1. No acute pelvic abnormality to account for the reported symptomatology. Specifically, no renal or ureteric stone or hydronephrosis. Further urologic evaluation may be considered if there is recurrent or persistent unexplained hematuria. 2. Stable enlarged ovaries compared to 03/07/2023, compatible with polycystic ovarian syndrome appropriate clinical and biochemical setting.
[2023-10-22 23:02] VITALS: O2SAT 99
== END 2023-10-22 23:06 | disposition home or self-care (01) ==
PROVIDERS: Emergency Provider Emergency Medicine; PCP Nurse Practitioner Family
DX: R10.9 Unspecified abdominal pain (principal); R31.9 Hematuria, unspecified
CPT/HCPCS: 36415; 74176; 80053; 81001; 81025; 83690; 85025; 99284

== ENCOUNTER → 2023-12-19 10:53 | Outpatient (BNVA) | payer OTHER, MEDICAID, SELFPAY | PROVIDERS: PCP Nurse Practitioner Family; Visit Provider Podiatrist Foot & Ankle Surgery | DX: M76.821 Posterior tibial tendinitis, right leg | CPT/HCPCS: 73600; 73630 ==

== ENCOUNTER 2024-03-09 09:22 | Outpatient (RCR) | payer OTHER, SELFPAY | END 2024-04-04 23:59 | disposition home or self-care (01) | LOC: SPT 09:22 | PROVIDERS: PCP Nurse Practitioner Family; Visit Provider Podiatrist Foot & Ankle Surgery | DX: M76.821 Posterior tibial tendinitis, right leg (principal); M76.822 Posterior tibial tendinitis, left leg | CPT/HCPCS: 97110; 97161 ==

== ENCOUNTER 2024-04-05 06:00 | Outpatient (RCR) | payer OTHER, SELFPAY | END 2024-05-05 23:59 | disposition home or self-care (01) | LOC: SPT 06:00 | PROVIDERS: PCP Nurse Practitioner Family; Visit Provider Podiatrist Foot & Ankle Surgery | DX: M76.821 Posterior tibial tendinitis, right leg (principal); M76.822 Posterior tibial tendinitis, left leg | CPT/HCPCS: 97110; 97140 ==

== ENCOUNTER 2024-05-07 20:44 | Emergency (ER) | payer OTHER, SELFPAY ==
[2024-05-07 21:12] VITALS: BP 147/88; PULSE 74; RESP 16; TEMP 36.7; O2SAT 100
--- NOTE | 2024-05-07 21:42 | W.ED.DENTAL ---
HPI - Dental/Oral General: Chief complaint: Dental/Oral Stated complaint: tooth pain Time Seen by Provider: 05/07/24 21:35 History of Present Illness: Patient chipped a tooth. Right lower posterior molar.#18. She has been having worsening pain and cannot get into her dentist until a week from now because he is on vacation. She says she just cannot tolerate the pain anymore. No redness. No swelling. No fevers. Review of Systems Narrative: Constitutional symptoms: Negative except as documented in HPI. Skin symptoms: Negative except as documented in HPI. Eye symptoms: Negative except as documented in HPI. ENMT symptoms: Negative except as documented in HPI. Respiratory symptoms: Negative except as documented in HPI. Cardiovascular symptoms: Negative except as documented in HPI. Gastrointestinal symptoms: Negative except as documented in HPI. Genitourinary symptoms: Negative except as documented in HPI. Musculoskeletal symptoms: Negative except as documented in HPI. Neurologic symptoms: Negative except as documented in HPI. Psychiatric symptoms: Negative except as documented in HPI. Endocrine symptoms: Negative except as documented in HPI. PFSH ED PFSH: Medical History ADHD MDD (major depressive disorder) Psychiatric care No pertinent past medical history neghx: htn,dm,thyroid,dvt/pe PCP: Kristi Tucker Surgical History No pertinent past surgical history Family History Grandmother Heart disease Maternal Hypertension Maternal Mother Stroke Denies family history of Colon cancer Ovarian cancer Diabetes Hypercholesteremia Breast cancer Uterine cancer Thyroid disease Social History Smoking and tobacco/nicotine status: unknown if used tobacco/nicotine Physical Exam Narrative: EXAM NARRATIVE: General: Alert, no acute distress. Skin: warm and dry Head: Normocephalic Neck: Trachea midline Eye: Extraocular movements are intact. Ears, nose, mouth and throat: Oral mucosa moist. Left tooth #18. Posterior molar. Has a chip. No obvious swelling or redness that would indicate dental infection at this point. Respiratory: Respirations are non-labored Musculoskeletal: Normal ROM Neurological: Alert and oriented, No focal neurological deficit observed. Psychiatric: Cooperative, appropriate mood & affect. Course Vital Signs: Vital signs: Vital Signs Temperature 98.0 F 05/07/24 21:12 Pulse Rate 74 05/07/24 21:12 Respiratory Rate 16 05/07/24 21:12 Blood Pressure 147/88 05/07/24 21:12 Pulse Oximetry 100 05/07/24 21:12 [facility] - Dental/Oral Medical Decision Making Assessment and plan: Fracture tooth ?[place] and Toradol in the emergency room - Discharged home - Discussed plan with patient. Answered any questions. - Evaluation and treatment of this problem were appropriate in the emergency setting. No radiology studies performed this visit Discharge Plan Discharge Patient Disposition: Home Clinical Impression: Pain, dental Condition: Stable Prescriptions: New amoxicillin 500 mg capsule 500 mg PO BID 10 Days Qty: 20 0RF hydrocodone-acetaminophen 5-325 mg tablet 1 tab PO Q6H PRN (Reason: pain) Qty: 20 0RF ondansetron 8 mg tablet,disintegrating 8 mg PO .q6 PRN (Reason: nausea and vomiting) Qty: 14 0RF diclofenac sodium 50 mg tablet,delayed release (DR/EC) 50 mg PO BID PRN (Reason: pain) Qty: 14 0RF No Action methylprednisolone [Medrol (Jeff)] 4 mg tablets,dose pack See Rx Instructions PO PER PKG DIR Qty: 21 0RF Rx Instructions: PO PER PKG DIR Nexplanon 68 mg implant See Rx Instructions .ROUTE .COMPLEX Rx Instructions: subdermally as directed aripiprazole 10 mg tablet 10 mg PO DAILY 30 Days Qty: 30 3RF dextroamphetamine-amphetamine 20 mg capsule,extended release 24hr 20 mg PO QAM 30 Days Qty: 30 0RF escitalopram oxalate 5 mg tablet 5 mg PO DAILY 30 Days Qty: 30 3RF multivitamin Tablet 2 tab PO DAILY PRN (Reason: unknown) omeprazole 20 mg capsule,delayed release(DR/EC) 20 mg PO DAILY PRN (Reason: Heartburn) albuterol sulfate 90 mcg/actuation HFA aerosol inhaler 2 puff INHALATION Q6H PRN (Reason: Wheezing) Vitamin D3 With Zinc 1 tab PO TID PRN (Reason: unknown) Pyridium 200 mg tablet 200 mg PO Q8H Qty: 6 0RF Tylenol Ex Str Rapid Release 500 mg Tablet 1,000 mg PO Q6H PRN (Reason: Pain) mupirocin 2 % ointment 1 applic TOPICAL BID Discharge Orders: Discharge ED (Routine); Ordered 05/07/24 Ordered By: Flaca Smith Referrals: Kristi Tucker NP [Primary Care Provider] - Discharge Diet: Advance as tolerated Discharge Activity: Increase activity as tolerated Patient Instructions: Opioid Safety, Pain Management Activity Restrictions/Additional Instructions: Please follow-up with your dentist as soon as possible Thank you for choosing [facility] for your healthcare needs today. Please realize this is an emergency room and that we are providing you with a medical screening exam and this may not be complete and all inclusive of all the testing and or work up that you may need to determine your ailment or severity of your illness. You have been screened and evaluated and felt safe for discharge. Health conditions do change or evolve sometimes and as such it is important that you follow up with your Primary Doctor to be re checked, 3-5 days is a general good time frame for follow up. You are always welcome to return to the ED for re assessment if your symptoms are worsening or you have new concerns Coding Level of Care Code ED Remote Computer Terminal Operator for Ilene Wei
[2024-05-07] MEDS: ketorolac 60 mg/2 mL INJ IM (21:49)
[2024-05-07] MEDS: HYDROcodone-acetaminophen 5-325 mg Tablet 1 TAB PO (21:49)
[2024-05-07 21:53] VITALS: BP 138/85; PULSE 71; RESP 16; TEMP 36.7; O2SAT 100
== END 2024-05-07 21:54 | disposition home or self-care (01) ==
PROVIDERS: Emergency Provider Emergency Medicine; PCP Nurse Practitioner Family
DX: K08.89 Other specified disorders of teeth and supporting structures (principal)
CPT/HCPCS: 96372; 99284; J1885

== ENCOUNTER 2024-06-28 13:26 | Emergency (ER) | payer OTHER, SELFPAY ==
[2024-06-28 13:32] VITALS: BP 100/69; PULSE 72; RESP 15; TEMP 36.6; O2SAT 100; BMI 37.8
[2024-06-28 16:13] LABS: Basophils # 0.1 10^3/uL (0.0-0.1); Basophils % 0.4 %; Eosinophils # 0.2 10^3/uL (0.0-0.8); Eosinophils % 1.7 %; Hematocrit 40.2 % (36-47); Lymphocytes # 3.2 10^3/uL (0.8-4.8); Lymphocytes % 24.4 %; Mean Corpuscular HGB Conc 31.8 g/dL (30-55); Mean Corpuscular Hemoglobin 26.9 pg (27-33); Mean Corpuscular Volume 84.6 fl (85-98); Mean Platelet Volume 10.7 fL (7.4-10.4); Monocytes # 0.7 10^3/uL (0.2-0.9); Monocytes % 5.7 %; Neutrophils # 8.75 10^3/uL (1.8-7.7); Neutrophils % 67.4 %; Nucleated Red Blood Cells % 0 %; Platelet Count 329 10^3/cmm (157-399); Red Blood Count 4.75 10^6/uL (3.85-5.65); Red Cell Distribution Width 13.4 % (12.1-15.1); White Blood Count 12.97 10^3/uL (3.29-11.43)
[2024-06-28 16:28] LABS: HCG, Serum Qual Negative (Negative)
[2024-06-28 16:34] LABS: Alanine Aminotransferase 18 U/L (0-33); Albumin Level 4.6 g/dL (3.5-5.2); Alkaline Phosphatase 128 U/L (35-105); Anion Gap 15.8 (5-19); Aspartate Amino Transferase 13 U/L (0-32); Blood Urea Nitrogen 11 mg/dL (6-20); Calcium 9.6 mg/dL (8.5-10.5); Carbon Dioxide 24 mmol/L (22-29); Chloride 103 mmol/L (98-107); Creatinine Clr Calc Pharmacy 170.3066; Globulin 3.2 g/dL (1.3-4.6); Glomerular Filtration Rate 152.7 mL/min (90-130); Glucose 74 mg/dL (65-115); Lipase 28 U/L (13-60); Osmolality Calculated 286 mOsm/kg (285-295); Potassium 3.8 mmol/L (3.5-5.1); Sodium 139 mmol/L (136-145); Total Bilirubin 0.3 mg/dL (0.15-1.2); Total Protein 7.8 g/dL (6.6-8.7)
== END 2024-06-28 19:00 | disposition left against medical advice (07) ==
LOC: ER 13:29
PROVIDERS: Physician Assistant; Emergency Provider Family Medicine; PCP Nurse Practitioner Family
DX: Z53.21 Procedure and treatment not carried out due to patient leaving prior to being seen by health care provider (principal)
CPT/HCPCS: 36415; 80053; 83690; 84703; 85025

== ENCOUNTER 2024-07-05 13:50 | Emergency (ER) | payer OTHER, SELFPAY ==
[2024-07-05 13:54] VITALS: BP 100/55; PULSE 79; TEMP 36.7; O2SAT 99; BMI 39.4
[2024-07-05 14:58] LABS: HCG, Serum Qual Negative (Negative)
[2024-07-05 15:02] LABS: Alanine Aminotransferase 17 U/L (0-33); Albumin Level 4.4 g/dL (3.5-5.2); Alkaline Phosphatase 123 U/L (35-105); Anion Gap 13.7 (5-19); Aspartate Amino Transferase 15 U/L (0-32); Blood Urea Nitrogen 11 mg/dL (6-20); Carbon Dioxide 23 mmol/L (22-29); Chloride 106 mmol/L (98-107); Creatinine Clr Calc Pharmacy 174.5549; Globulin 2.9 g/dL (1.3-4.6); Glomerular Filtration Rate 152.7 mL/min (90-130); Glucose 81 mg/dL (65-115); Lipase 28 U/L (13-60); Osmolality Calculated 286 mOsm/kg (285-295); Potassium 3.7 mmol/L (3.5-5.1); Sodium 139 mmol/L (136-145); Total Bilirubin 0.2 mg/dL (0.15-1.2); Total Protein 7.3 g/dL (6.6-8.7)
[2024-07-05 15:39] LABS: Basophils % 0.4 %; Eosinophils # 0.2 10^3/uL (0.0-0.8); Eosinophils % 1.7 %; Hematocrit 36.7 % (36-47); Lymphocytes % 30.7 %; Mean Corpuscular HGB Conc 31.6 g/dL (30-55); Mean Corpuscular Hemoglobin 26.9 pg (27-33); Mean Corpuscular Volume 85.2 fl (85-98); Monocytes # 0.6 10^3/uL (0.2-0.9); Monocytes % 6.5 %; Neutrophils # 5.86 10^3/uL (1.8-7.7); Neutrophils % 60.4 %; Nucleated Red Blood Cells % 0 %; Platelet Count 305 10^3/cmm (157-399); Red Blood Count 4.31 10^6/uL (3.85-5.65); Red Cell Distribution Width 13.5 % (12.1-15.1); White Blood Count 9.69 10^3/uL (3.29-11.43)
--- NOTE | 2024-07-05 16:33 | CTR_ITS ---
PROCEDURE INFORMATION: Exam: CT Abdomen And Pelvis With Contrast Exam date and time: 07/05/2024 5:34 PM Age: 19 years old Clinical indication: Abdominal pain; Additional info: Abd pain TECHNIQUE: Imaging protocol: Computed tomography of the abdomen and pelvis with contrast. Axial, coronal and sagittal reformatted images were created and reviewed. Radiation optimization: All CT scans at this facility use at least one of these dose optimization techniques: automated exposure control; mA and/or kV adjustment per patient size (includes targeted exams where dose is matched to clinical indication); or iterative reconstruction. Contrast material: OMNI 350; Contrast volume: 100 ml; Contrast route: INTRAVENOUS (IV); COMPARISON: CT kidney stone [id number] 10/22/2023 10:10 PM RADIATION DOSE METRICS: Total DLP (mGy-cm): 1104 FINDINGS: Liver: Mild hepatomegaly. Gallbladder and biliary ducts: No radiodense gallstones. No biliary ductal dilatation. Pancreas: Unremarkable. Spleen: Unremarkable. Adrenal glands: Normal. No mass. Kidneys and ureters: No mass. No radiodense calculi. No hydronephrosis. Stomach and bowel: No bowel wall thickening. No obstruction. No pneumatosis. Appendix: Normal. Intraperitoneal space: No free fluid. No organized fluid collection. No free air. Vasculature: Unremarkable. No aneurysm. Lymph nodes: Small mesenteric lymph nodes, some of which are clustered along the right psoas musculature. No pathologically enlarged lymph nodes. Urinary bladder: Unremarkable as visualized. Reproductive: Unremarkable. Bones/joints: No acute osseous abnormality. Soft tissues: Tiny, fat containing umbilical hernia. CT/CT abdomen pelvis w con* [id number] IMPRESSION: Small mesenteric lymph nodes, some of which are clustered along the right psoas musculature. Findings are nonspecific in appearance but can be seen with mesenteric adenitis.
--- NOTE | 2024-07-05 16:37 | W.ED.ABDPA2 ---
HPI - Abdominal Pain General: Chief Complaint: Abdominal Pain Stated Complaint: NVD Time Seen by Provider: 07/05/24 16:27 Source: patient Mode of arrival: ambulatory Limitations: no limitations History of Present Illness: 19-year-old female states over the last 4 days she has been having lower abdominal pain it has been a cramping type pain she is also been having nausea and vomiting as well. She rates her pain a 6 out of 10 currently she denies any dysuria denies any fevers. Associated Symptoms: Reports nausea and vomiting; Denies chills, diarrhea and fever(s) Related Data Home Medications Medication Instructions Recorded Confirmed etonogestrel 68 mg subdermal See Rx Instructions .Route .COMPLEX 05/21/22 05/18/24 implant (Nexplanon) Vitamin D3 With Zinc 1 tab PO TID PRN unknown 03/07/23 05/18/24 albuterol sulfate 90 mcg/actuation 2 puff inhalation Q6H PRN Wheezing 03/07/23 05/18/24 aerosol inhaler multivitamin 2 tab PO DAILY PRN unknown 03/07/23 05/18/24 omeprazole 20 mg capsule,delayed 20 mg PO DAILY PRN Heartburn 03/07/23 05/18/24 release acetaminophen 500 mg tablet 1,000 mg PO Q6H PRN Pain 04/30/23 05/18/24 mupirocin 2 % topical ointment 1 applic topical BID 04/30/23 05/18/24 Previous Rx's Medication Instructions Recorded aripiprazole 10 mg tablet 10 mg PO DAILY 30 days #30 tabs 05/13/23 dextroamphetamine-amphetamine ER 20 mg PO QAM 30 days #30 caps 05/13/23 20 mg 24hr capsule,extend release escitalopram oxalate 5 mg tablet 5 mg PO DAILY 30 days #30 tabs 05/13/23 phenazopyridine 200 mg tablet 200 mg PO Q8H 6 doses #6 tabs 08/21/23 (Pyridium) methylprednisolone 4 mg tablets in See Rx Instructions PO PER PKG DIR 02/05/24 a dose pack (Medrol (Jeff)) #21 ea diclofenac sodium 50 mg 50 mg PO BID PRN pain #14 tabs 05/07/24 tablet,delayed release hydrocodone 5 mg-acetaminophen 325 1 tab PO Q6H PRN pain #20 tabs 05/07/24 mg tablet ondansetron 8 mg disintegrating 8 mg PO .q6 PRN nausea and 05/07/24 tablet vomiting #14 tabs hydrocodone 5 mg-acetaminophen 325 1 tab PO Q6H PRN pain #14 tabs 07/05/24 mg tablet ondansetron 4 mg disintegrating 4 mg PO Q6H PRN nausea and 07/05/24 tablet vomiting #14 tabs Allergies Allergy/AdvReac Type Severity Reaction Status Date / Time No Known Allergies Allergy Verified 07/05/24 13:59 Review of Systems Const: Denies: fever(s), chills, body aches or change in appetite ENMT: Denies: throat pain or dental pain Card: Denies: chest pain Resp: Denies: dyspnea GI: Reports: abdominal pain, nausea and vomiting; Denies: diarrhea Musc: Denies: neck pain or back pain Skin/Breast: Denies: rash Neuro: Denies: headache(s) PFSH ED PFSH: Medical History ADHD MDD (major depressive disorder) No pertinent past medical history neghx: htn,dm,thyroid,dvt/pe PCP: Kristi Tucker Surgical History No pertinent past surgical history Family History Grandmother Heart disease Maternal Hypertension Maternal Mother Stroke Denies family history of Colon cancer Ovarian cancer Diabetes Hypercholesteremia Breast cancer Uterine cancer Thyroid disease Physical Exam Const: COMMON NORMALS: no acute distress, patient oriented x3 and healthy appearing HENMT: COMMON NORMALS: normocephalic and atraumatic HEAD & SCALP: normocephalic and atraumatic Neck/C-Spine: COMMON NORMALS: full ROM and supple Chest: COMMONS NORMALS: normal inspection of the chest Resp: COMMON NORMALS: normal respiratory effort Cardio: COMMON NORMALS: regular rate, regular rhythm and No murmurs present (Cardio) RATE: regular rate RHYTHM: regular rhythm GI: COMMON NORMALS: Normal to inspection, nondistended, normoactive bowel sounds present, Soft to palpation and no masses PALPATION: Yes Soft to palpation OTHER: lower abd tenderness Extremity: COMMON NORMALS: normal to inspection and full ROM Neuro: COMMON NORMALS: patient oriented x3, moves all extremities and no focal motor deficits Psych: COMMON NORMALS: mental status grossly normal, Normal thought process present and cooperative THOUGHT PROCESS: Normal thought process present Skin: COMMON NORMALS: no rashes or lesions noted and no wounds GENERAL SKIN EXAM: no rashes or lesions noted Course Vital Signs: Vital signs: Vital Signs Temperature 98.1 F 07/05/24 13:54 Pulse Rate 90 07/05/24 17:29 Respiratory Rate 18 07/05/24 17:29 Blood Pressure 133/87 07/05/24 17:29 Pulse Oximetry 98 07/05/24 17:29 Oxygen Delivery Me thod Room Air 07/05/24 17:29 MDM - Abdominal Pain Medical Decision Making Patient presents here with abdominal pain CT shows mesenteric adenitis blood work here is normal she feels improved she stable for discharge follow-up with PCP return if worsening Medical Records I reviewed the patient's medical records. Lab Data I reviewed the patient's lab results. 07/05/24 14:31 07/05/24 14:31 Labs/Radiology: Radiology Impressions Abdomen/Pelvis CT 07/05/24 16:33 IMPRESSION: Small mesenteric lymph nodes, some of which are clustered along the right psoas musculature. Findings are nonspecific in appearance but can be seen with mesenteric adenitis. Laboratory Results WBC 9.69 10^3/uL (3.29-11.43) 07/05/24 14:31 RBC 4.31 10^6/uL (3.85-5.65) 07/05/24 14:31 Hgb 11.60 g/dL (11.27-16.99) 07/05/24 14:31 Hct 36.7 % (36-47) 07/05/24 14:31 MCV 85.2 fl (85-98) 07/05/24 14:31 MCH 26.9 pg (27-33) L 07/05/24 14:31 MCHC 31.6 g/dL (30-55) 07/05/24 14:31 RDW 13.5 % (12.1-15.1) 07/05/24 14:31 Plt Count 305 10^3/cmm (157-399) 07/05/24 14:31 MPV 11.0 fL (7.4-10.4) H 07/05/24 14:31 Neut % (Auto) 60.4 % 07/05/24 14:31 Lymph % (Auto) 30.7 % 07/05/24 14:31 [place] % (Auto) 6.5 % 07/05/24 14:31 Eos % (Auto) 1.7 % 07/05/24 14:31 Baso % (Auto) 0.4 % 07/05/24 14:31 Neut # (Auto) 5.86 10^3/uL (1.8-7.7) 07/05/24 14:31 Lymph # (Auto) 3.0 10^3/uL (0.8-4.8) 07/05/24 14:31 [place] # (Auto) 0.6 10^3/uL (0.2-0.9) 07/05/24 14:31 Eos # (Auto) 0.2 10^3/uL (0.0-0.8) 07/05/24 14:31 Baso # (Auto) 0.0 10^3/uL (0.0-0.1) 07/05/24 14:31 Nucleated RBC % (auto) 0 % 07/05/24 14:31 Nucleated RBCs # 0.0 /100WBC 07/05/24 14:31 Sodium 139 mmol/L (136-145) 07/05/24 14:31 Potassium 3.7 mmol/L (3.5-5.1) 07/05/24 14:31 Chloride 106 mmol/L (98-107) 07/05/24 14:31 Carbon Dioxide 23 mmol/L (22-29) 07/05/24 14:31 Anion Gap 13.7 (5-19) 07/05/24 14:31 BUN 11 mg/dL (6-20) 07/05/24 14:31 Creatinine 0.6 mg/dL (0.5-0.9) 07/05/24 14:31 GFR Calculation 152.7 mL/min (90-130) H 07/05/24 14:31 Glucose 81 mg/dL (65-115) 07/05/24 14:31 Calculated Osmolality 286 mOsm/kg (285-295) 07/05/24 14:31 Calcium 9.0 mg/dL (8.5-10.5) 07/05/24 14:31 Total Bilirubin 0.2 mg/dL (0.15-1.2) 07/05/24 14:31 AST 15 U/L (0-32) 07/05/24 14:31 ALT 17 U/L (0-33) 07/05/24 14:31 Alkaline Phosphatase 123 U/L (35-105) H 07/05/24 14:31 Total Protein 7.3 g/dL (6.6-8.7) 07/05/24 14:31 Albumin 4.4 g/dL (3.5-5.2) 07/05/24 14:31 Globulin 2.9 g/dL (1.3-4.6) 07/05/24 14:31 Lipase 28 U/L (13-60) 07/05/24 14:31 HCG, Qual Negative (Negative) 07/05/24 14:31 Urine Color Yellow (Yellow) 07/05/24 17:24 Urine Appearance Clear (CLEAR) 07/05/24 17:24 Urine pH 5.5 (5-7) 07/05/24 17:24 Ur Specific [place] 1.036 (1.005-1.030) H 07/05/24 17:24 Urine Protein Trace (Negative) A 07/05/24 17:24 Urine Glucose (UA) Negative (Normal) 07/05/24 17:24 Urine Ketones 2+ (Negative) H 07/05/24 17:24 Urine Blood Negative (Negative) 07/05/24 17:24 Urine Nitrate Negative (Negative) 07/05/24 17:24 Urine Bilirubin Negative (Negative) 07/05/24 17:24 Urine Urobilinogen 1.0 mg/dL (Negative) 07/05/24 17:24 Ur Leukocyte Esterase Negative (Negative) 07/05/24 17:24 Urine RBC 0-2 /hpf (0-2) 07/05/24 17:24 Urine WBC 0-5 /hpf (0-5) 07/05/24 17:24 Ur Squamous Epith Cells 6-10 /hpf (0-5) 07/05/24 17:24 Amorphous Sediment Not Reportable 07/05/24 17:24 Urine Bacteria None seen /hpf (NONE) 07/05/24 17:24 Hyaline Casts 2.87 /lpf 07/05/24 17:24 All radiology interpretation(s) finalized by discharge Discharge Plan Discharge Patient Disposition: Home Clinical Impression: Abdominal pain, Mesenteric adenitis Condition: Stable Prescriptions: New hydrocodone-acetaminophen 5-325 mg tablet 1 tab PO Q6H PRN (Reason: pain) Qty: 14 0RF ondansetron 4 mg tablet,disintegrating 4 mg PO Q6H PRN (Reason: nausea and vomiting) Qty: 14 0RF No Action methylprednisolone [Medrol (Jeff)] 4 mg tablets,dose pack See Rx Instructions PO PER PKG DIR Qty: 21 0RF Rx Instructions: PO PER PKG DIR Nexplanon 68 mg implant See Rx Instructions .ROUTE .COMPLEX Rx Instructions: subdermally as directed aripiprazole 10 mg tablet 10 mg PO DAILY 30 Days Qty: 30 3RF dextroamphetamine-amphetamine 20 mg capsule,extended release 24hr 20 mg PO QAM 30 Days Qty: 30 0RF escitalopram oxalate 5 mg tablet 5 mg PO DAILY 30 Days Qty: 30 3RF multivitamin Tablet 2 tab PO DAILY PRN (Reason: unknown) omeprazole 20 mg capsule,delayed release(DR/EC) 20 mg PO DAILY PRN (Reason: Heartburn) albuterol sulfate 90 mcg/actuation HFA aerosol inhaler 2 puff INHALATION Q6H PRN (Reason: Wheezing) Vitamin D3 With Zinc 1 tab PO TID PRN (Reason: unknown) Pyridium 200 mg tablet 200 mg PO Q8H Qty: 6 0RF hydrocodone-acetaminophen 5-325 mg tablet 1 tab PO Q6H PRN (Reason: pain) Qty: 20 0RF ondansetron 8 mg tablet,disintegrating 8 mg PO .q6 PRN (Reason: nausea and vomiting) Qty: 14 0RF diclofenac sodium 50 mg tablet,delayed release (DR/EC) 50 mg PO BID PRN (Reason: pain) Qty: 14 0RF Tylenol Ex Str Rapid Release 500 mg Tablet 1,000 mg PO Q6H PRN (Reason: Pain) mupirocin 2 % ointment 1 applic TOPICAL BID Discharge Orders: Discharge ED (Routine); Ordered 07/05/24 Ordered By: Zeus Mcnair Referrals: Kristi Tucker, PEDIATRIC CRITICAL CARE NURSE [Primary Care Provider] - 4-7 days Discharge Diet: Advance as tolerated Discharge Activity: Resume usual activity Patient Instructions: Abdominal Pain (ED), Mesenteric Adenitis (ED), Opioid Safety Coding Level of Care Code ED X Ray Nurse for Chg Sanjuana
[2024-07-05] MEDS: morphine 4 mg/mL SDV 1 mL IVP (17:20)
[2024-07-05] MEDS: sodium chloride 0.9% 1,000 ML 999 ML IV (17:20)
[2024-07-05] MEDS: ondansetron 2 mg/ML SDV 2 mL 4 MG IVP (17:20)
[2024-07-05 17:29] VITALS: BP 133/87; PULSE 90; RESP 18; O2SAT 98
[2024-07-05 17:36] LABS: Bilirubin Urine Negative (Negative); Blood Urine Negative (Negative); Glucose Urine UA Negative (Normal); Ketones Urine 2+ (Negative); Leukocyte Esterase Urine Negative (Negative); Nitrate Urine Negative (Negative); Protein Urine Trace (Negative); Urine Appearance Clear (CLEAR); Urine Color Yellow (Yellow); pH Urine 5.5 (5-7)
[2024-07-05] MEDS: iohexol 350 mg/mL 500 mL Btl (per mL) IV (17:38)
[2024-07-05 17:39] LABS: Add Urine Microscopic? YES; Bacteria Urine None Seen /hpf; Hyaline Casts Urine 2.87 /lpf; RBC Urine 0-2 /hpf (0-2); WBC Urine 0-5 /hpf (0-5)
[2024-07-05 18:01] LABS: Add Urine Culture? No; Specific Gravity, Urine 1.036 (1.005-1.030)
[2024-07-05 19:01] VITALS: BP 116/78
[2024-07-05 19:04] VITALS: BP 116/78; PULSE 75; O2SAT 98
== END 2024-07-05 19:05 | disposition home or self-care (01) ==
PROVIDERS: Emergency Provider Emergency Medicine; PCP Nurse Practitioner Family
DX: I88.0 Nonspecific mesenteric lymphadenitis (principal); R10.30 Lower abdominal pain, unspecified
CPT/HCPCS: 36415; 74177; 80053; 81001; 83690; 84703; 85025; 96374; 96375; 99285; J2270; J2405; J7030